=== PATIENT | male | born 1945 | race Caucasian/White ===

== ENCOUNTER 2017-05-20 05:55 | Inpatient (IN) | payer BC, OTHER ==
[2017-04-29 17:45] VITALS: BMI 34.4
--- NOTE | 2017-05-19 10:43 | HP ---
Satellite [facility] - Chief Complaint Chief Complaint: left knee pain - Past Medical History Allergies/Adverse Reactions: Allergies Allergy/AdvReac Type Severity Reaction Status Date / Time Sulfa (Sulfonamide Allergy Unknown Rash Verified 04/29/17 17:36 Antibiotics) - Current Medications Current Medications: Home Medications Medication Instructions Recorded Amlodipine Besylate [Norvasc -] 10 mg PO DAILY 08/27/15 Atenolol [Tenormin -] 100 mg PO DAILY 08/27/15 Lisinopril [Prinivil -] 40 mg PO DAILY 08/27/15 Rosuvastatin Calcium [Crestor] 10 mg PO Q48H 08/27/15 Aspirin [ASA -] 81 mg PO DAILY 04/29/17 Glipizide 5 mg PO DAILY 04/29/17 Satellite Physical Exam - Physical Examination General Appearance: Well Nourished, Well Developed, Alert & Oriented x3 ENT: Clear Lung: Normal air movement Heart: Regular rate & rhythm Extremities: Other (left knee- + swelling, + ttp, dec rom ,nvi xrays show severe tricompartmental djd) Neurological: Intact, Alert, Oriented Satellite Impression/Plan - Impression/Plan Impression: left knee djd Operative Procedure: left libia tkr Date to be Performed: 05/20/17
[2017-05-20] MEDS ORDERED: GABAPENTIN 300 MG CAPSULE (FP) PO ONE (06:17)
[2017-05-20] MEDS ORDERED: TRANEXAMIC ACID 1000 MG/10 ML VIAL IVPUSH ONE (06:17)
[2017-05-20] MEDS ORDERED: oxyCODONE HCL 10 MG SUSTAINED ACTING TABLET PO ONE (06:17)
[2017-05-20] MEDS ORDERED: CEFAZOLIN 2 GM in DEXTROSE 5%-WATER - 100 ML IVPB ONE (06:17)
[2017-05-20] MEDS ORDERED: BUPIVACAINE HCL/PF (5 MG/ML) 30 ML VIAL IJ ONE (07:07)
[2017-05-20] MEDS ORDERED: ceFAZolin SODIUM 1 GM VIAL ONE ×2 (07:07→07:50)
[2017-05-20] MEDS ORDERED: DEXAMETHASONE SOD PHOSPHATE/PF 10 MG/ML SDV ONE (07:07)
[2017-05-20] MEDS ORDERED: VANCOMYCIN 1,000 MG VIAL (RESTRICTED TO ID ONLY) ONE (07:07)
[2017-05-20] MEDS ORDERED: MIDAZOLAM HCL 2 MG/2 ML SINGLE DOSE VIAL ONE ×2 (07:07→08:18)
[2017-05-20] MEDS ORDERED: SODIUM CHLORIDE 0.9% P/F 10 ML VIAL IJ ONE (07:07)
[2017-05-20] MEDS ORDERED: SUCCINYLCHOLINE CHLORIDE 200 MG/10 ML VIAL ONE (07:50)
[2017-05-20] MEDS ORDERED: PROPOFOL 20 ML ONE (07:50)
[2017-05-20] MEDS ORDERED: TRANEXAMIC ACID 1000 MG/10 ML VIAL ONE ×2 (07:50→09:43)
[2017-05-20] MEDS ORDERED: DEXAMETHASONE SOD PHOSPHATE 4 MG/1 ML VIAL ONE (07:50)
[2017-05-20] MEDS ORDERED: ePHEDrine SULFATE 50 MG/1 ML AMPULE ONE (07:50)
[2017-05-20] MEDS ORDERED: ONDANSETRON 4 MG/2 ML VIAL ONE (07:50)
[2017-05-20] MEDS ORDERED: BUPIVACAINE HCL/PF 0.5% (5MG/ML) 10 ML VIAL ONE (07:55)
[2017-05-20] MEDS ORDERED: MAGNESIUM HYDROX 2400MG/30ML ORAL SUSPENSION 30 ML CUP PO PRN (10:04)
[2017-05-20] MEDS ORDERED: MAG HYDROX/AL HYDROX/SIMETH 30 ML UNIT-DOSE CUP PO PRN (10:04)
--- NOTE | 2017-05-20 10:07 | OP ---
Operative Note - Note: Operative Date: 05/20/17 (luis manuel) Pre-Operative Diagnosis: left knee djd Operation: left libia tkr Post-Operative Diagnosis: Same as Pre-op Surgeon: Doni Lancaster Signs And Displays Sales Representative: Peyman Lyons) Anesthesiologist/[employer]: Danilo Mcfarlane Anesthesia: Spinal, Local Specimens Removed: bone fragments Estimated Blood Loss (mls): 50 (tourniquet) Operative Report Dictated: Yes
[2017-05-20] MEDS ORDERED: LACTATED RINGERS SOLUTION 1,000 ML IV SCH (10:15)
[2017-05-20] MEDS: ACETAMINOPHEN 325 MG TABLET (FP) PO SCH ×4 (10:40→22:33)
[2017-05-20] MEDS ORDERED: oxyCODONE HCL 5 MG TABLET PO PRN (10:53)
[2017-05-20] MEDS ORDERED: ONDANSETRON 4 MG/2 ML VIAL IVPB PRN (10:53)
--- NOTE | 2017-05-20 11:09 | SPEC ---
DATE OF OPERATION: 05/20/2017 OPERATION: Left total knee replacement with robotic-assisted navigation (MAKOplasty). PREOPERATIVE DIAGNOSIS: Degenerative joint disease, left knee. POSTOPERATIVE DIAGNOSIS: Degenerative joint disease, left knee. SURGEON ATTENDING: Doni Lancaster MD 1ST ASSISTANTS: Peyman Lyons MD and MABEL Bhatt ANESTHESIA: Spinal and regional. CLOSURE: A Triathlon knee system with a 5 femur, a 6 tibia, a 9 polyethylene, a 35 patella. A No. 1 Vicryl, fascia; 0 and 2-0 for subcutaneous; 3-0 Monocryl subcuticular with skin glue for skin; 4-0 undyed Vicryl for pin sites. ESTIMATED BLOOD LOSS: Negligible. TOURNIQUET TIME: Approximately 80 minutes. COMPLICATIONS: None. CONDITION: To recovery room in stable condition. DESCRIPTION OF PROCEDURE: Patient was taken to the operating room on May 20, 2017. Regional and spinal anesthesia were administered by the anesthesiologist. IV antibiotics and TXA were administered prophylactically prior to the case. A well-padded pneumatic tourniquet was placed on the left proximal thigh. The left lower extremity was prepped and draped in the usual sterile fashion. An approximately 12-cm midline incision centered over the patella was incised. Hemostasis was achieved with Bovie cautery. Sharp dissection was carried down to the level of the extensor mechanism the procedure. The medial parapatellar arthrotomy was then performed. The patella was inverted and the knee was flexed up to 90 degrees. Subperiosteal dissection was performed on the anteromedial proximal tibia until the knee was able to be brought forward. This was facilitated by taking the ACL, the PCL, and the medial and lateral menisci. A checkpoint was malleted into the medial femoral condyle and into the anteromedial proximal tibia. Through 2 small stab incisions in the mid femur and 2 in the mid tibia, 2 bicortical pins were drilled, achieving excellent height. Two of these pins were attached to the navigation arrays. The knee was then registered with the navigation device by rotating the hip to ascertain the center of rotation of the hip with points on both the medial and lateral malleoli and multiple points on both the femur and on the tibia. Excellent registration was confirmed by "popping the bubbles." At this time, the osteophytes on the edges of the proximal tibia both medially and laterally as well as on the medial lateral femoral condyles underneath the collateral ligaments were debrided. The knee was stressed in extension and in flexion to confirm good gaps. The virtual positions of the components were then optimized in order to have a balanced knee, both in extension and in 90 degrees of flexion. The sizes of the components were also optimized to get good coverage over both the tibia and the femur and to produce equal gaps in extension and flexion with the appropriate amount of external rotation of the femur, the appropriate amount of flexion of the femoral component and the appropriate slope on the tibial component. At this time, the robot was brought into the field and registered. The robot was used to cut the proximal tibia and to make all the cuts on the distal femur. The bone was then removed. A spacer block in extension and flexion was used to confirm equal balancing of the component in both extension and 90 degrees of flexion. The box for the posterior cruciate sacrificing component was then performed and a trial component on the femur and tibia was applied. The femoral component was clipped into place with the appropriate external rotation. This was confirmed by the navigation device, ensuring the appropriate position of the tibial component on the proximal tibia. The patella was calipered for thickness and osteotomized at the appropriate level. A lollipop was used to drill the 3 lugholes in the patella and then a trial component was applied. The knee was taken through a range of motion and found to have excellent tracking of the patella from full extension to full flexion, with good stability, varus/valgus throughout range of motion. The trial components were then removed. Before removing the tibial tray, the keyhole was made. The knee was then thoroughly irrigated with antibiotic irrigation. The real components were then cemented in, using modern generation cement techniques with antibiotic cement and pressurization. After the cement was hardened, the knee was thoroughly inspected to remove all excess cement. The real polyethylene component was then clipped into place. Again, range of motion, stability and tracking were found to be excellent throughout. The knee was then pulse antibiotic irrigated and dried. Vancomycin powder was placed into the knee. The checkpoints were removed. The medial parapatellar arthrotomy was then closed using No. 1 Vicryl interrupted suture. The knee was again taken through range of motion and found to have no undue tension on the repair and good tracking throughout. The subcutaneous was closed with 0 and 2-0 Vicryl and 3-0 Monocryl subcuticular for skin with skin glue. The pins were removed in the femur and the tibia and pulse antibiotic irrigated and closed with 4-0 undyed Vicryl. Sterile Aquacel dressing followed by a Anton dressing was applied. The tourniquet was then deflated. One more dose of TXA was administered at the end of the case. The patient was awakened from anesthesia and transferred to the recovery room in stable condition. X-rays revealed good position of the components. There were no complications. Estimated blood loss was negligible. Total tourniquet time was approximately 80 minutes. Tee [id number]
[2017-05-20] MEDS: LACTATED RINGERS SOLUTION 1,000 ML IV SCH (12:56)
[2017-05-20] MEDS: INSULIN SLIDING SCALE (NOVOLOG) 1 VIAL SQ SCH ×3 (12:59→22:33)
[2017-05-20] MEDS: CEFAZOLIN 2 GM/D5W 50 ML IVPB SCH ×2 (16:05→23:28)
[2017-05-20] MEDS ORDERED: INSULIN (NOVOLOG) ASPART 100 UNITS/ML 10ML VIAL ONE ×2 (16:17→22:25)
[2017-05-20] MEDS: SENNOSIDES/DOCUSATE COMBO (SENNA PLUS) TABLET (UD) PO SCH (21:06)
[2017-05-20] MEDS: oxyCODONE HCL 5 MG TABLET PO PRN (21:07)
[2017-05-20] MEDS ORDERED: ROSUVASTATIN CA 10 MG TABLET (FP) PO SCH (22:00)
[2017-05-21] MEDS: ACETAMINOPHEN 325 MG TABLET (FP) PO SCH ×4 (04:53→21:53)
[2017-05-21] MEDS: oxyCODONE HCL 5 MG TABLET PO PRN ×4 (04:53→19:55)
[2017-05-21] MEDS: INSULIN SLIDING SCALE (NOVOLOG) 1 VIAL SQ SCH ×4 (06:39→21:03)
[2017-05-21] MEDS: glipiZIDE 5 MG TABLET (FP) PO SCH (06:40)
[2017-05-21] MEDS: ASPIRIN 325 MG TABLET PO SCH (07:35)
--- NOTE | 2017-05-21 07:59 | PN ---
Progress Note (short form) - Note Progress Note: Ortho Pt seen and examined s/p left libia tkr pod #1 Selected Entries 05/21/17 06:00 Temperature 98.0 F Pulse Rate 73 Respiratory 20 Rate Blood Pressure 142/74 Laboratory Tests 05/21/17 07:30 WBC Pending Hgb Pending Hct Pending Plt Count Pending dressing c/d/i, calf soft, nt rom 0-90, nvi a/p PT dvt ppx pain control d/c home tomorrow if stable
[2017-05-21 09:11] LABS: MCH 29.7 pg (25.7-33.7); MCHC 34.1 g/dl (32.0-35.9); MEAN CELL VOLUME 87.1 fl (80-96); MEAN PLT VOLUME 12.5 fl (7.5-11.1); PLATELET COUNT 152 K/MM3 (134-434); RDW 12.9 % (11.9-15.9); WHITE BLOOD COUNT 10.7 K/mm3 (4.0-10.8)
[2017-05-21] MEDS: SENNOSIDES/DOCUSATE COMBO (SENNA PLUS) TABLET (UD) PO SCH ×2 (09:37→21:03)
[2017-05-21] MEDS: LISINOPRIL 20 MG TABLET (FP) PO SCH (09:37)
[2017-05-21] MEDS: PANTOPRAZOLE 40 MG TABLET (FP) PO SCH (09:38)
[2017-05-21] MEDS: ATENOLOL 50 MG TABLET (FP) PO SCH (09:38)
[2017-05-21] MEDS: amLODIPine BESYLATE 10 MG TABLET (FP) PO SCH (09:38)
--- NOTE | 2017-05-21 09:38 | PN ---
Progress Note (short form) - Note Progress Note: ANESTHESIOLOGY: 71 yo male POD #1 s/p L TKA. Patient doing well. Pain well controlled. Tolerating PO. Actively participating in PT. Encouraged IS.
[2017-05-21] MEDS: MULTIVITAMINS (DAILY MVI) TABLET (FP) PO SCH (09:40)
[2017-05-21] MEDS: LACTATED RINGERS SOLUTION 1,000 ML IV SCH (09:40)
[2017-05-21] MEDS ORDERED: glipiZIDE 10 MG TABLET (FP) PO SCH (10:00)
[2017-05-21] MEDS ORDERED: PATIENT'S OWN MEDICATION (NON-FORMULARY) (Atenolol [Tenormin -] 100 MG) PO SCH (10:00)
[2017-05-21] MEDS ORDERED: PATIENT'S OWN MEDICATION (NON-FORMULARY) (Lisinopril [Prinivil -] 40 MG) PO SCH (10:00)
[2017-05-21] MEDS ORDERED: INSULIN (NOVOLOG) ASPART 100 UNITS/ML 10ML VIAL ONE (21:00)
[2017-05-22] MEDS: ACETAMINOPHEN 325 MG TABLET (FP) PO SCH ×2 (05:14→09:44)
[2017-05-22] MEDS: oxyCODONE HCL 5 MG TABLET PO PRN ×2 (05:18→11:57)
[2017-05-22] MEDS ORDERED: INSULIN (NOVOLOG) ASPART 100 UNITS/ML 10ML VIAL ONE ×2 (06:34→11:54)
[2017-05-22] MEDS: INSULIN SLIDING SCALE (NOVOLOG) 1 VIAL SQ SCH ×2 (06:37→11:57)
[2017-05-22] MEDS: glipiZIDE 5 MG TABLET (FP) PO SCH (06:37)
[2017-05-22 07:55] LABS: MCH 29.4 pg (25.7-33.7); MCHC 33.5 g/dl (32.0-35.9); MEAN CELL VOLUME 87.6 fl (80-96); MEAN PLT VOLUME 11.9 fl (7.5-11.1); PLATELET COUNT 120 K/MM3 (134-434); RDW 12.9 % (11.9-15.9); WHITE BLOOD COUNT 8.8 K/mm3 (4.0-10.8)
[2017-05-22 08:00] VITALS: BP 153/79; PULSE 80; TEMP 98
--- NOTE | 2017-05-22 08:12 | PN ---
Progress Note (short form) - Note Progress Note: Ortho Pt seen and examined s/p left libia tkr pod #2 Selected Entries 05/22/17 07:59 Temperature 98 F Pulse Rate 80 Respiratory 18 Rate Blood Pressure 153/79 Laboratory Tests 05/22/17 07:30 WBC 8.8 Hgb 12.7 Hct 38.0 Plt Count 120 L D dressing c/d/i, calf soft, nt rom 0-90, nvi a/p PT dvt ppx pain control d/c home today f/u in 1 week
--- NOTE | 2017-05-22 08:13 | DS ---
Physical Examination Vital Signs: Vital Signs Temperature 98 F 05/22/17 07:59 Pulse Rate 80 05/22/17 07:59 Respiratory Rate 18 05/22/17 08:00 Blood Pressure 153/79 05/22/17 07:59 O2 Sat by Pulse Oximetry (%) 98 05/22/17 08:00 Labs: CBC, BMP 05/22/17 07:30 Discharge Summary Reason For Visit: OSTEOARTHRITIS Procedures: Principal: s/p left tkr Hospital Course: admitted for elective left libia tkr, uneventful post-op, stable for d/c Condition: Good - Instructions Diet, Activity, Other Instructions: Post-op Instructions-Total Knee Replacement Call the office for a follow-up appointment in 1 week - [phone] Aspirin 325mg daily for 6 weeks. Pain medication was sent into your pharmacy. Apply Graduated Compression Stockings (TEDs) to both lower extremities- remove daily for hygiene ONLY Apply Sequential Compression Device (SCDs) to both Lower extremities remove for PT and hygiene ONLY Apply cold packs to affected area for 15 minutes every 2 hours. Physical Therapist will come to your home for the first 5 days. You will be set up with outpatient PT at your first post-operative visit. Patient may ambulate as tolerated-encourage self care (at least every 2-3 hours while awake) with walker or cane Maintain Aquacel (waterproof) dressing to operative wound (will be removed by surgeon at first office visit) Shower with Aquacel dressing in place-if Aquacel integrity compromised, remove and apply dry sterile dressing and notify Orthopedist. DO NOT SHOWER unless Orthopedists approves without Aquacel dressing CONTACT THE OFFICE FOR ANY CHANGE IN YOUR CONDITION (for example-fever greater than 102 degrees,excessive bleeding from operative site, purulent drainage, severe swelling or pain) GO TO THE EMERGENCY ROOM IF THERE IS A MEDICAL EMERGENCY Knee Precautions: * Keep a rolled towel under affected heel while in bed or chair (to keep knee in extension) * Keep affected leg elevated except during mealtimes * DO NOT PLACE PILLOW UNDER AFFECTED KNEE * If you have any questions, please do not hesitate to call the office - [phone]. Referrals: Peyman Lyons MD [Staff Physician] - Disposition: VNS/HOME HEALTH CARE - Home Medications Comprehensive Discharge Medication List: Ambulatory Orders Amlodipine Besylate [Norvasc -] 10 mg PO DAILY 08/27/15 Atenolol [Tenormin -] 100 mg PO DAILY 08/27/15 Lisinopril [Prinivil -] 40 mg PO DAILY 08/27/15 Rosuvastatin Calcium [Crestor] 10 mg PO Q48H 08/27/15 Glipizide 5 mg PO DAILY 04/29/17 Aspirin [ASA -] 325 mg PO DAILY@0800 tablet 05/20/17 Oxycodone HCl/Acetaminophen [Percocet 5-325 mg Tablet -] 1 - 2 tab PO Q6H #50 tab MDD 8 05/20/17
[2017-05-22] MEDS: ASPIRIN 325 MG TABLET PO SCH (08:24)
[2017-05-22] MEDS: PANTOPRAZOLE 40 MG TABLET (FP) PO SCH (09:44)
[2017-05-22] MEDS: MULTIVITAMINS (DAILY MVI) TABLET (FP) PO SCH (09:44)
[2017-05-22] MEDS: ATENOLOL 50 MG TABLET (FP) PO SCH (09:44)
[2017-05-22] MEDS: LISINOPRIL 20 MG TABLET (FP) PO SCH (09:44)
[2017-05-22] MEDS: amLODIPine BESYLATE 10 MG TABLET (FP) PO SCH (09:44)
[2017-05-22] MEDS: SENNOSIDES/DOCUSATE COMBO (SENNA PLUS) TABLET (UD) PO SCH (09:44)
[2017-05-22] MEDS: LACTATED RINGERS SOLUTION 1,000 ML IV SCH (11:56)
--- NOTE | 2017-05-22 14:25 | PATH ---
Surgical Pathology Report Patient Name: CONNIE VILLALOBOS Med. Rec. #: [id number] /Age/Gender: 1945 (Age: 71) / M Account: [id number] Location: [facility] MED-SURG Taken: 05/20/2017 Received: 05/20/2017 Reported: 05/22/2017 Physicians: Doni Lancaster M.D. Specimen(s) Received LEFT KNEE BONES Clinical History Left knee osteoarthritis Final Diagnosis KNEE BONES, LEFT, TOTAL KNEE REPLACEMENT: DEGENERATIVE JOINT DISEASE. Electronically Signed Rebecca Hinojosa M.D. Gross Description Received in formalin labeled "left knee bones," is a 12.0 x 9.0 x 2.0 cm aggregate of multiple varela, irregular portions of bone and soft tissue. The tibial plateau measures 8.2 x 5.5 x 1.4 cm. There is a 1.3 cm greatest dimension area of eburnation identified. The remaining articular surfaces are varela-yellow and diffusely granular. The underlying trabecular bone is yellow and hard. Music Store Manager sections are submitted in one cassette, following decalcification. 05/21/201705/21/2017
== END 2017-05-22 12:50 | disposition home health service (06) | DRG 470 ==
LOC: FM/S 05:55
PROVIDERS: ADMIT Orthopaedic Surgery; ATTEND Orthopaedic Surgery
PROC: 8E0Y0CZ Robotic Assisted Procedure of Lower Extremity, Open Approach (ICD-10-PCS; 2017-05-20)
PROC: 0SRD0J9 Replacement of Left Knee Joint with Synthetic Substitute, Cemented, Open Approach (ICD-10-PCS; principal; 2017-05-20 08:33)
DX: M17.12 Unilateral primary osteoarthritis, left knee (principal); I10 Essential (primary) hypertension; E11.9 Type 2 diabetes mellitus without complications
CPT/HCPCS: 36415; 73560-TC-LT; 85027; 88304-TC; 88311-TC; 94010; 94760; 97116-GP; 97162-GP